=== PATIENT | female | born 1980 | race Caucasian/White ===

== ENCOUNTER 2018-03-27 14:57 | Emergency (ER) | payer MEDICAID ==
[~2018-03-27] VITALS: Ht 154.9 cm; Wt 57.0 kg
[2018-03-27] MEDS ORDERED: KETOROLAC 60MG/2ML VIAL IM ONE (17:15)
[2018-03-27] MEDS ORDERED: ACETAMINOPHEN WITH CODEINE 300/30MG TABLET PO ONE (20:00)
[2018-03-27] MEDS ORDERED: ONDANSETRON HCL 4MG/2ML VIAL IV STA (20:01)
[2018-03-27] MEDS ORDERED: MORPHINE SULFATE 4 MG/ML CPJ (NOT FOR IM USE) IV STA (20:01)
[2018-03-27 22:32] VITALS: BP 116/70
== END 2018-03-27 22:34 | disposition home or self-care (01) ==
LOC: ER 16:57
DX: M25.561 Pain in right knee (principal); M54.5 Low back pain; Z90.710 Acquired absence of both cervix and uterus; V43.52XA Car driver injured in collision with other type car in traffic accident, initial encounter; Y93.89 Activity, other specified; Y92.488 Other paved roadways as the place of occurrence of the external cause
CPT/HCPCS: 72100; 73560; 73600; 96372; 96374; 99284; J1885; J2270; Z7610